=== PATIENT | male | born 1950 | race Caucasian/White ===

== ENCOUNTER 2016-05-26 15:42 | Outpatient (CLI) | payer MEDICARE, MEDICAID | END 2016-05-26 15:43 | disposition critical access hospital (66) | DX: R53.1 Weakness (principal); M25.571 Pain in right ankle and joints of right foot; X50.9XXA Other and unspecified overexertion or strenuous movements or postures, initial encounter; W19.XXXA Unspecified fall, initial encounter; Y93.01 Activity, walking, marching and hiking; Y92.832 Beach as the place of occurrence of the external cause | CPT/HCPCS: A0425; A0427 ==

== ENCOUNTER 2016-05-26 15:55 | Inpatient (IN) | payer MEDICARE, MEDICAID ==
[2016-05-26] MEDS ORDERED: SODIUM CHLORIDE 0.9% 1,000 ML IV ONE (17:35)
[2016-05-26] MEDS ORDERED: cefTRIAXone 1 GM in SODIUM CHLORIDE 0.9% MINIBAG 100 ML IV STA (18:46)
[2016-05-26] MEDS ORDERED: AZITHROMYCIN INJ 500 MG in SODIUM CHLORIDE 0.9% 250 ML IV STA (18:46)
[2016-05-26] MEDS ORDERED: cefTRIAXone 1 GM VIAL ONE (19:18)
[2016-05-26] MEDS ORDERED: ONDANSETRON 4 MG/2 ML VIAL IVP PRN (19:44)
[2016-05-26] MEDS ORDERED: SODIUM CHLORIDE FLUSH 0.9% 10 ML SYRINGE IVP PRN (19:44)
[2016-05-26] MEDS ORDERED: ALBUTEROL NEB 2.5 MG/3 ML INH PRN (19:47)
[2016-05-26] MEDS: IPRATROPIUM/ALBUTEROL 3 ML NEB INH SCH (21:00)
[2016-05-26] MEDS: SODIUM CHLORIDE 0.9% 1,000 ML IV SCH (21:12)
[2016-05-26] MEDS: INSULIN ASPART 300 UNIT/3 ML PEN SUBQ SCH (21:21)
[2016-05-26] MEDS: SODIUM CHLORIDE FLUSH 0.9% 10 ML SYRINGE IVP SCH (21:22)
[2016-05-26] MEDS: ACETAMINOPHEN 325 MG TABLET PO PRN (21:24)
[2016-05-27] MEDS: HYDROmorphone 1 MG/ML SYRINGE IVP PRN ×2 (00:42→23:51)
[2016-05-27] MEDS: ACETAMINOPHEN 325 MG TABLET PO PRN ×4 (03:59→22:43)
[2016-05-27] MEDS: SODIUM CHLORIDE FLUSH 0.9% 10 ML SYRINGE IVP SCH ×3 (05:40→20:38)
[2016-05-27] MEDS: SODIUM CHLORIDE 0.9% 1,000 ML IV SCH ×2 (06:19→17:02)
[2016-05-27] MEDS: PANTOPRAZOLE 40 MG TABLET PO SCH (06:19)
[2016-05-27] MEDS: INSULIN ASPART 300 UNIT/3 ML PEN SUBQ SCH ×4 (08:52→20:38)
[2016-05-27] MEDS ORDERED: cefTRIAXone 2 GM in SODIUM CHLORIDE 0.9% MINIBAG 100 ML IV SCH (09:00)
[2016-05-27] MEDS: ARIPiprazole 5 MG TABLET PO SCH (10:26)
[2016-05-27] MEDS: TAMSULOSIN 0.4 MG CAPSULE PO SCH (10:27)
[2016-05-27] MEDS: CALCIUM CARBONATE CHEW 500 MG TABLET PO SCH ×2 (10:27→20:58)
[2016-05-27] MEDS: PROPRANOLOL 10 MG TABLET PO SCH (10:27)
[2016-05-27] MEDS: LISINOPRIL 5 MG TABLET PO SCH (10:27)
[2016-05-27] MEDS: ATORVASTATIN 40 MG TABLET PO SCH (10:27)
[2016-05-27] MEDS: FOLIC ACID 1 MG TABLET PO SCH (10:28)
[2016-05-27] MEDS: ASPIRIN 325 MG TABLET PO SCH (10:28)
[2016-05-27] MEDS: SACCHAROMYCES BOULARDII 250 MG CAPSULE PO SCH ×2 (10:28→17:00)
[2016-05-27] MEDS: ENOXAPARIN 40 MG/0.4 ML SYRINGE SUBQ SCH (10:28)
[2016-05-27] MEDS: POLYETHYLENE GLYCOL 3350 17 GM PACKET PO SCH (10:28)
[2016-05-27] MEDS: cefTRIAXone 1 GM in SODIUM CHLORIDE 0.9% MINIBAG 100 ML IV SCH (10:39)
[2016-05-27] MEDS: NICOTINE 14 MG PATCH TOP SCH (10:46)
[2016-05-27] MEDS: IPRATROPIUM/ALBUTEROL 3 ML NEB INH SCH ×3 (11:00→19:45)
[2016-05-27] MEDS: CLOBETASOL 0.05% OINT 30 GM TUBE TOP SCH (12:04)
[2016-05-28] MEDS: SODIUM CHLORIDE 0.9% 1,000 ML IV SCH ×2 (02:44→13:27)
[2016-05-28] MEDS: SODIUM CHLORIDE FLUSH 0.9% 10 ML SYRINGE IVP SCH ×3 (02:47→20:53)
[2016-05-28] MEDS: ACETAMINOPHEN 325 MG TABLET PO PRN ×2 (04:16→08:40)
[2016-05-28] MEDS: PANTOPRAZOLE 40 MG TABLET PO SCH (06:06)
[2016-05-28] MEDS: cefTRIAXone 1 GM in SODIUM CHLORIDE 0.9% MINIBAG 100 ML IV SCH (08:38)
[2016-05-28] MEDS: NICOTINE 14 MG PATCH TOP SCH (08:39)
[2016-05-28] MEDS: POLYETHYLENE GLYCOL 3350 17 GM PACKET PO SCH (08:40)
[2016-05-28] MEDS: TAMSULOSIN 0.4 MG CAPSULE PO SCH (08:41)
[2016-05-28] MEDS: ARIPiprazole 5 MG TABLET PO SCH (08:41)
[2016-05-28] MEDS: LISINOPRIL 5 MG TABLET PO SCH (08:41)
[2016-05-28] MEDS: ASPIRIN 325 MG TABLET PO SCH (08:41)
[2016-05-28] MEDS: ENOXAPARIN 40 MG/0.4 ML SYRINGE SUBQ SCH (08:41)
[2016-05-28] MEDS: SACCHAROMYCES BOULARDII 250 MG CAPSULE PO SCH ×2 (08:41→16:37)
[2016-05-28] MEDS: INSULIN ASPART 300 UNIT/3 ML PEN SUBQ SCH ×4 (08:41→20:52)
[2016-05-28] MEDS: CALCIUM CARBONATE CHEW 500 MG TABLET PO SCH ×2 (08:41→20:52)
[2016-05-28] MEDS: PROPRANOLOL 10 MG TABLET PO SCH (08:42)
[2016-05-28] MEDS: ATORVASTATIN 40 MG TABLET PO SCH (08:43)
[2016-05-28] MEDS ORDERED: cefTRIAXone 2 GM in SODIUM CHLORIDE 0.9% MINIBAG 100 ML IV SCH (09:00)
[2016-05-28] MEDS ORDERED: CHOLECALCIFEROL 5,000 UNIT CAPSULE PO SCH (09:00)
[2016-05-28] MEDS: CLOBETASOL 0.05% OINT 30 GM TUBE TOP SCH (13:27)
[2016-05-28] MEDS: AZITHROMYCIN 250 MG TABLET PO SCH (13:33)
[2016-05-28] MEDS: HYDROmorphone 1 MG/ML SYRINGE IVP PRN (20:52)
[2016-05-29] MEDS: SODIUM CHLORIDE 0.9% 1,000 ML IV SCH ×3 (00:09→11:54)
[2016-05-29] MEDS: SODIUM CHLORIDE FLUSH 0.9% 10 ML SYRINGE IVP SCH ×3 (05:03→20:58)
[2016-05-29] MEDS: PANTOPRAZOLE 40 MG TABLET PO SCH (06:34)
[2016-05-29] MEDS: ASPIRIN 325 MG TABLET PO SCH (08:27)
[2016-05-29] MEDS: ARIPiprazole 5 MG TABLET PO SCH (08:27)
[2016-05-29] MEDS: SACCHAROMYCES BOULARDII 250 MG CAPSULE PO SCH ×2 (08:27→16:50)
[2016-05-29] MEDS: cefTRIAXone 1 GM in SODIUM CHLORIDE 0.9% MINIBAG 100 ML IV SCH (08:29)
[2016-05-29] MEDS: FOLIC ACID 1 MG TABLET PO SCH (08:29)
[2016-05-29] MEDS: ENOXAPARIN 40 MG/0.4 ML SYRINGE SUBQ SCH (08:29)
[2016-05-29] MEDS: LISINOPRIL 5 MG TABLET PO SCH (08:29)
[2016-05-29] MEDS: CALCIUM CARBONATE CHEW 500 MG TABLET PO SCH ×2 (08:29→20:58)
[2016-05-29] MEDS: AZITHROMYCIN 250 MG TABLET PO SCH (08:29)
[2016-05-29] MEDS: HYDROmorphone 1 MG/ML SYRINGE IVP PRN ×2 (08:30→20:58)
[2016-05-29] MEDS: PROPRANOLOL 10 MG TABLET PO SCH (08:30)
[2016-05-29] MEDS: TAMSULOSIN 0.4 MG CAPSULE PO SCH (08:30)
[2016-05-29] MEDS: NICOTINE 14 MG PATCH TOP SCH (08:30)
[2016-05-29] MEDS: INSULIN ASPART 300 UNIT/3 ML PEN SUBQ SCH ×4 (08:51→21:03)
[2016-05-29] MEDS: CLOBETASOL 0.05% OINT 30 GM TUBE TOP SCH (08:58)
[2016-05-29] MEDS: ATORVASTATIN 40 MG TABLET PO SCH (08:58)
[2016-05-29] MEDS: POLYETHYLENE GLYCOL 3350 17 GM PACKET PO SCH (09:55)
[2016-05-29] MEDS: ACETAMINOPHEN 325 MG TABLET PO PRN (14:19)
[2016-05-30] MEDS: SODIUM CHLORIDE 0.9% 1,000 ML IV SCH ×2 (04:09→13:21)
[2016-05-30] MEDS: ACETAMINOPHEN 325 MG TABLET PO PRN ×4 (04:12→18:37)
[2016-05-30] MEDS: SODIUM CHLORIDE FLUSH 0.9% 10 ML SYRINGE IVP SCH ×3 (05:16→20:49)
[2016-05-30] MEDS: PANTOPRAZOLE 40 MG TABLET PO SCH (06:10)
[2016-05-30] MEDS: ASPIRIN CHEW 81 MG TABLET PO SCH (09:10)
[2016-05-30] MEDS: INSULIN ASPART 300 UNIT/3 ML PEN SUBQ SCH ×4 (09:10→20:49)
[2016-05-30] MEDS: SACCHAROMYCES BOULARDII 250 MG CAPSULE PO SCH ×2 (09:10→18:33)
[2016-05-30] MEDS: ATORVASTATIN 40 MG TABLET PO SCH (09:11)
[2016-05-30] MEDS: CALCIUM CARBONATE CHEW 500 MG TABLET PO SCH ×2 (09:11→20:49)
[2016-05-30] MEDS: FOLIC ACID 1 MG TABLET PO SCH (09:12)
[2016-05-30] MEDS: NICOTINE 14 MG PATCH TOP SCH (09:12)
[2016-05-30] MEDS: ENOXAPARIN 40 MG/0.4 ML SYRINGE SUBQ SCH (09:12)
[2016-05-30] MEDS: LISINOPRIL 5 MG TABLET PO SCH (09:12)
[2016-05-30] MEDS: POLYETHYLENE GLYCOL 3350 17 GM PACKET PO SCH (09:12)
[2016-05-30] MEDS: PROPRANOLOL 10 MG TABLET PO SCH (09:13)
[2016-05-30] MEDS: TAMSULOSIN 0.4 MG CAPSULE PO SCH (09:13)
[2016-05-30] MEDS: ARIPiprazole 5 MG TABLET PO SCH (09:18)
[2016-05-30] MEDS: CLOBETASOL 0.05% OINT 30 GM TUBE TOP SCH (09:19)
[2016-05-31] MEDS: SODIUM CHLORIDE FLUSH 0.9% 10 ML SYRINGE IVP SCH ×2 (06:09→14:01)
[2016-05-31] MEDS: PANTOPRAZOLE 40 MG TABLET PO SCH (06:09)
[2016-05-31] MEDS: ACETAMINOPHEN 325 MG TABLET PO PRN ×2 (06:09→11:00)
[2016-05-31] MEDS: FOLIC ACID 1 MG TABLET PO SCH (09:28)
[2016-05-31] MEDS: INSULIN ASPART 300 UNIT/3 ML PEN SUBQ SCH ×2 (09:29→12:01)
[2016-05-31] MEDS: SACCHAROMYCES BOULARDII 250 MG CAPSULE PO SCH (09:29)
[2016-05-31] MEDS: ASPIRIN CHEW 81 MG TABLET PO SCH (09:29)
[2016-05-31] MEDS: ARIPiprazole 5 MG TABLET PO SCH (09:29)
[2016-05-31] MEDS: ATORVASTATIN 40 MG TABLET PO SCH (09:30)
[2016-05-31] MEDS: LISINOPRIL 5 MG TABLET PO SCH (09:30)
[2016-05-31] MEDS: CALCIUM CARBONATE CHEW 500 MG TABLET PO SCH (09:30)
[2016-05-31] MEDS: NICOTINE 14 MG PATCH TOP SCH (09:30)
[2016-05-31] MEDS: ENOXAPARIN 40 MG/0.4 ML SYRINGE SUBQ SCH (09:30)
[2016-05-31] MEDS: POLYETHYLENE GLYCOL 3350 17 GM PACKET PO SCH (09:31)
[2016-05-31] MEDS: PROPRANOLOL 10 MG TABLET PO SCH (09:31)
[2016-05-31] MEDS: TAMSULOSIN 0.4 MG CAPSULE PO SCH (09:31)
[2016-05-31] MEDS: CLOBETASOL 0.05% OINT 30 GM TUBE TOP SCH (09:32)
== END 2016-05-31 17:26 | DRG 562 ==
DX: S82.841A Displaced bimalleolar fracture of right lower leg, initial encounter for closed fracture (principal); J18.9 Pneumonia, unspecified organism; G45.9 Transient cerebral ischemic attack, unspecified; S82.61XA Displaced fracture of lateral malleolus of right fibula, initial encounter for closed fracture; J81.1 Chronic pulmonary edema; I69.354 Hemiplegia and hemiparesis following cerebral infarction affecting left non-dominant side; W01.0XXA Fall on same level from slipping, tripping and stumbling without subsequent striking against object, initial encounter; Y93.01 Activity, walking, marching and hiking; Y92.832 Beach as the place of occurrence of the external cause; R09.02 Hypoxemia; Z87.891 Personal history of nicotine dependence; I65.21 Occlusion and stenosis of right carotid artery; E11.9 Type 2 diabetes mellitus without complications; F31.9 Bipolar disorder, unspecified; K21.9 Gastro-esophageal reflux disease without esophagitis; N40.0 Benign prostatic hyperplasia without lower urinary tract symptoms; R25.1 Tremor, unspecified; I10 Essential (primary) hypertension; F17.210 Nicotine dependence, cigarettes, uncomplicated; Z86.73 Personal history of transient ischemic attack (TIA), and cerebral infarction without residual deficits; Z87.898 Personal history of other specified conditions; Z79.84 Long term (current) use of oral hypoglycemic drugs; Z79.82 Long term (current) use of aspirin; Z71.6 Tobacco abuse counseling